=== PATIENT | male | born 1975 | race Caucasian/White ===

== ENCOUNTER 2024-06-01 16:44 | Emergency (ER) | payer SELFPAY ==
[2024-06-01 16:50] VITALS: BP 158/100; PULSE 93; RESP 16; TEMP 37.4; O2SAT 95; BMI 25.8
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
== END 2024-06-01 18:16 | disposition home or self-care (01) ==
LOC: ED 18:15
PROVIDERS: Emergency Provider Emergency Medicine
DX: K64.4 Residual hemorrhoidal skin tags (principal)
CPT/HCPCS: 99282; 99283

== ENCOUNTER 2024-07-03 11:29 | Outpatient (CLI) | payer OTHER, SELFPAY ==
--- NOTE | 2024-07-03 12:42 | P.ANES_ITS ---
Anesthesia Charges Start Date/Time Anesthesia Start Date: 07/03/24 Anesthesia Start Time: 12:14 Stop Date/Time Anesthesia Stop Date: 07/03/24 Anesthesia Stop Time: 12:39 Coding CPT Codes CPT Codes: JULISSA LWR INTST SCR COLSC - 97204 ([id number]) P1 - NORMAL HEALTHY PATIENT, QK - TUFTER 2-4 CNCRNT ANES PROC, QX - CAPTAIN'S ASSISTANT SVC W/ MED DIRECTION
--- NOTE | 2024-07-03 12:42 | W.ANESCHARGE ---
Anesthesia Charges Start Date/Time Anesthesia Start Date: 07/03/24 Anesthesia Start Time: 12:14 Stop Date/Time Anesthesia Stop Date: 07/03/24 Anesthesia Stop Time: 12:39 Coding CPT Codes CPT Codes: JULISSA LWR INTST SCR COLSC - 40856 ([id number]) P1 - NORMAL HEALTHY PATIENT, QK - SNUFF BLENDER 2-4 CNCRNT ANES PROC, QX - HEATING REPAIR TECHNICIAN SVC W/ MED DIRECTION
--- NOTE | 2024-07-03 13:00 | P.ANES_ITS ---
Anesthesia Charges Start Date/Time Anesthesia Start Date: 07/03/24 Anesthesia Start Time: 12:14 Stop Date/Time Anesthesia Stop Date: 07/03/24 Anesthesia Stop Time: 12:39 Coding CPT Codes CPT Codes: JULISSA LWR INTST SCR COLSC - 00505 ([id number]) QK - STONEWORK TRACER 2-4 CNCRNT ANES PROC, QX - HAMPER MAKER MACHINE SVC W/ MED DIRECTION, P1 - NORMAL HEALTHY PATIENT
--- NOTE | 2024-07-03 13:00 | W.ANESCHARGE ---
Anesthesia Charges Start Date/Time Anesthesia Start Date: 07/03/24 Anesthesia Start Time: 12:14 Stop Date/Time Anesthesia Stop Date: 07/03/24 Anesthesia Stop Time: 12:39 Coding CPT Codes CPT Codes: JULISSA LWR INTST SCR COLSC - 15668 ([id number]) QK - MANAGER OF GLOBAL 2-4 CNCRNT ANES PROC, QX - MICRO PALEONTOLOGIST SVC W/ MED DIRECTION, P1 - NORMAL HEALTHY PATIENT
== END 2024-07-03 11:30 | disposition home or self-care (01) ==
LOC: OP CLINIC 11:33
PROVIDERS: Visit Provider Surgery
DX: Z12.11 Encounter for screening for malignant neoplasm of colon (principal); K64.8 Other hemorrhoids; K64.4 Residual hemorrhoidal skin tags
CPT/HCPCS: 00812; 45378; T1013; J2704

== ENCOUNTER 2024-07-18 06:04 | Day surgery (SDC) | payer OTHER, SELFPAY ==
[2024-07-18] VITALS (13 sets, daily range): BP systolic 90–150; BP diastolic 61–88; PULSE 62–78; RESP 16–20; TEMP 35.8–37; O2SAT 93–98; BMI 27.1
--- OUTSIDE RECORDS SUMMARY | 2024-07-18 06:06 | XMS_ITS | Clinical Summary ---
Author Organization [facility] Address [place], [place] [address] Care Team Providers Care Board Of Education Secretary Name Role Phone [facility] Allergies No known active allergies Medications baclofen (LIORESAL) 10 mg tabletIndicatio ns:Left arm pain,Radiculopa thy, unspecified spinal region Take 1 Tablet (10 mg) by mouth 2 times daily if needed for Other (Specify) (muscle pain). 10 Tablet 1 Active methylPREDNISol one (MEDROL DOSEPAK) 4 mg tabletIndicatio ns:Acute bilateral low back pain without sciatica Take by mouth as instructed per packaging. 21 Tablet 4 Active ibuprofen (ADVIL; MOTRIN) 600 mg tabletIndicatio ns:Acute bilateral low back pain without sciatica Take 1 Tablet (600 mg) by mouth every 6 hours if needed for Pain. Maximum of 3200 mg in 24 hours. 30 Tablet 4 Active lidocaine 4 % topical patchIndication s:Acute bilateral low back pain without sciatica Apply to intact skin to cover most painful area for max 12hr per 24hr period. 10 Patch 4 Active HYDROcodone-dez taminophen (5-325 mg/tablet)Indic ations:Acute bilateral low back pain without sciatica Take 1 Tablet by mouth 4 times daily if needed for Pain. Max acetaminophen dose: 4000 mg in 24 hrs. 20 Tablet 4 Active Social History Tobacco Use Types Packs/Day Years Used Date Smoking Tobacco: Never Smokeless Tobacco: Never Alcohol Use Standard Drinks/Week Comments Not Currently 0 (1 standard drink = 0.6 oz pur e alcohol) Interpersonal Safety Answer Date Record ed Are you being hit, kicked, p ushed or yelled at (see row info)? 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 Gender Identity Not on file Sexual Orientation Not on file Obstetrics History Last Filed Vital Signs Vital Sign [place] Time Taken Comments Blood Pressure 150/99 01/01/2024 9:11 PM CDT Pulse 72 01/01/2024 9:11 PM CDT Temperature 36.6 C (97.8 F) 01/01/2024 8:06 PM CDT Respiratory Rate 26 01/01/2024 8:06 PM CDT Oxygen Saturation 98% 01/01/2024 9:11 PM CDT Inhaled Oxygen Concentration - - Weight 84.4 kg (186 lb) 01/01/2024 8:08 PM CDT Height 177.8 cm (5' 10) 01/01/2024 8:08 PM CDT Body Mass Index 26.69 01/01/2024 8:08 PM CDT Plan of Treatment Health Maintenance Due Date Last Done Comments Tdap 1984 Depression screening for age 12+ 1985 HIV for age 15-65 1988 BMI (ht and wt on same day) for age 18+ 09/14/1991 Hepatitis C screening for age 18-79 09/14/1991 Tetanus booster 1993 Colonoscopy through age 75 2018 Lipids for age 45-75 2018 Pneumococcal series for age 50+ (1 of 1 - PCV) 09/14/2023 Zoster (shingles) series for age 50+ (1 of 2) 09/14/2023 COVID-19 vaccine series (2023- season) 2024 08/28/2021, 10/10/2020, 09/12/2020 Influenza for age 50-64 02/06/2024 [id number] [id number] [facility] [employer] [id number] [place] [id number] Care Teams Board Of Education Secretary Relationship Specialty Start Date End Date Clinic, [facility] [address] [facility] [place] [id number] PCP - General 12/22/20
[2024-07-18] MEDS: LACTATED RINGERS 500 ML 500 ML 50 ML IV (06:53)
--- NOTE | 2024-07-18 07:30 | W.PM.H&PU ---
History & Physical Update History & Physical Update H&P Reviewed and patient assessed: No changes noted
[2024-07-18] MEDS: BUPIVACAINE 0.5% 30 ML INJECTION (08:06)
[2024-07-18] MEDS: BUPIVACAINE LIPOSOME 133 MG/10 ML INJ INFILTRATI (08:06)
--- NOTE | 2024-07-18 08:16 | PM.GSPRC ---
Operative Note Date of procedure: 07/18/24 Pre-op diagnosis: Internal hemorrhoids Post-op diagnosis: Same Type of Procedure: Single quadrant hemorrhoidectomy Indications: Patient is a 48-year-old male who presented to clinic with a symptomatic skin tag and intermittent bright red blood with bowel movements. Please see consultation note for full discussion. Risks and benefits of operative intervention were discussed at length with the patient. Risks included but was not limited to: Bleeding, infection, risk of damage to surrounding structures, possible need for additional procedures, the small but real possibility of incontinence associated with any anal procedure and postoperative complications such as pneumonia, pulmonary emboli or NC. All questions and concerns were addressed with the patient agreeing to proceed. Procedure Description: After discussing the risks and benefits of the procedure, the patient signed informed consent.? The operative site was marked and the patient was brought to the operating room and placed on the operating table in supine position.? A spinal anesthetic was administered, and the patient was then transferred to the Operating Room table, placed in the prone jackknife position with appropriate bumps and padding. Care was taken to ensure the genitalia and breasts were properly positioned on the hip and chest rolls, respectively. The shoulders and arms were positioned with care to protect the brachial plexus. The buttocks were taped laterally. A sterile prep and drape was done in the usual fashion. External examination, digital rectal examination, and anoscopic examination were all done and revealed significantly redundant internal hemorrhoidal tissue in the left lateral aspect of the anal canal with associated residual hemorrhoidal skin tags. Based on this assessment, plans were made for a single-quadrant closed hemorrhoidectomy to encompass the aforementioned aspects of the anal canal. An elliptical incision was made with a needle tip electrocautery from the anoderm up into the anal canal just above the dentate line. Careful dissection of the hemorrhoid complex was done in the plane between the internal anal sphincter and the submucosal vascular plexus up to just above the dentate line in each quadrant described above. Having established the proper plane, the hemorrhoidal tissue was then excised with the Ligasure device and sent to Pathology for analysis. Care was taken to preserve mucosa for a tension-free closure. The internal sphincter fibers were visualized at the base of the wound and were intact. The wound was closed in a running locked manner starting at the apex (proximal aspect of elliptical excision) with 4-0 chromic suture, coming out to the anoderm and then running back up in a simple fashion and tying down at the apex. Hemostasis was excellent. A mixture of Exparel and 0.5% Marcaine was used for a bilateral pudendal nerve block and local anesthetic. The patient tolerated procedure well. There were no apparent complications. Instrument, sponge, and needle counts were correct at the end of the case. Findings: Single quadrant hemorrhoidectomy Anesthesia: local and spinal Surgeon: Laura Dior MD Estimated blood loss (mL): 5 Additional Specimen Information: Hemorrhoid tissue Condition: stable Disposition: PACU
--- NOTE | 2024-07-18 08:19 | W.ANESCHARGE ---
Anesthesia Charges Start Date/Time Anesthesia Start Date: 07/18/24 Anesthesia Start Time: 07:29 Stop Date/Time Anesthesia Stop Date: 07/18/24 Anesthesia Stop Time: 08:17 Coding CPT Codes CPT Codes: ANESTH ANORECTAL SURGERY - 69137 ([id number]) P1 - NORMAL HEALTHY PATIENT, QK - MANAGER STAR 2-4 CNCRNT ANES PROC, QX - MEAT SUPERVISOR SVMayelin W/ MED DIRECTION
--- NOTE | 2024-07-18 10:00 | P.ANES_ITS ---
Anesthesia Charges Start Date/Time Anesthesia Start Date: 07/18/24 Anesthesia Start Time: 07:29 Stop Date/Time Anesthesia Stop Date: 07/18/24 Anesthesia Stop Time: 08:17 Coding CPT Codes CPT Codes: ANESTH ANORECTAL SURGERY - 28194 ([id number]) QK - NETWORK DESIGNER 2-4 CNCRNT ANES PROC, QX - NAPHTHA WASHING SYSTEM OPERATOR SVC W/ MD MED DIRECTION, P2 - PATIENT W/MILD SYST DISEASE
--- NOTE | 2024-07-18 10:00 | W.ANESCHARGE ---
Anesthesia Charges Start Date/Time Anesthesia Start Date: 07/18/24 Anesthesia Start Time: 07:29 Stop Date/Time Anesthesia Stop Date: 07/18/24 Anesthesia Stop Time: 08:17 Coding CPT Codes CPT Codes: ANESTH ANORECTAL SURGERY - 14310 ([id number]) QK - CERAMICS ENGINEER 2-4 CNCRNT ANES PROC, QX - HOUSING DIRECTOR SVC W/ MD MED DIRECTION, P2 - PATIENT W/MILD SYST DISEASE
[2024-07-18] MEDS: KETOROLAC 15 MG/ML inj IVP (10:02)
== END 2024-07-18 10:15 | disposition home or self-care (01) ==
PROVIDERS: Visit Provider Surgery
PROC: (CPT 46255; principal; 2024-07-18 07:30)
DX: K64.8 Other hemorrhoids (principal); K64.4 Residual hemorrhoidal skin tags
CPT/HCPCS: 46255; 00902; 88304; T1013; J0665; J0666; J1885; J2250; J2405; J2704; J3010; J7120